=== PATIENT | female | born 2000 | race Caucasian/White ===

== ENCOUNTER 2018-10-31 15:35 | Emergency (ER) | payer MEDICAID ==
[~2018-10-31] VITALS: Ht 157.5 cm; Wt 70.0 kg
[2018-10-31 17:26] LABS: BASOPHILS % 0.5 % (0.0-2.0); EOSINOPHILS % 0.5 % (0.0-5.0); HEMATOCRIT. 37.4 % (36.0-48.0); LYMPHOCYTES % 14.3 % (20.0-50.0); MEAN CORPUSCULAR HEMOGLOBIN 30.1 pg (28.0-32.0); MEAN CORPUSCULAR VOLUME 86.4 fL (81.0-99.0); MEAN PLATELET VOLUME 8.2 fl (7.4-10.4); MONOCYTES % 4.7 % (2.0-8.0); PLATELET 269 x1000/uL (130-400); RED BLOOD CELL COUNT 4.33 mill/uL (4.2-5.4); RED CELL DISTRIBUTION WIDTH 12.8 % (11.6-14.6)
[2018-10-31 17:31] LABS: CHLORIDE 108 mEq/L (98-107)
[2018-10-31 17:35] LABS: ETHANOL BLOOD < 10 mg/dL
[2018-10-31 18:45] LABS: CLARITY URINE CLEAR (CLEAR); COLOR URINE YELLOW (YELLOW); KETONES URINE NEGATIVE (NEGATIVE); LEUKOCYTE ESTERASE URINE NEGATIVE (NEGATIVE); NITRITE URINE NEGATIVE (NEGATIVE); OCCULT BLOOD URINE NEGATIVE (NEGATIVE); PH URINE 6.5 (4.5-8.0); PROTEIN URINE NEGATIVE (NEGATIVE); SPECIFIC GRAVITY URINE 1.016 (1.005-1.030); UROBILINOGEN URINE 0.2 E.U./dL (0.2-1.0)
[2018-10-31 18:56] LABS: *AMPHETAMINES SCREEN URINE NEGATIVE (NEGATIVE); *BARBITURATES SCREEN URINE NEGATIVE (NEGATIVE)
[2018-10-31 18:57] LABS: *BENZODIAZEPINES SCREEN URINE NEGATIVE (NEGATIVE); *COCAINE SCREEN URINE NEGATIVE (NEGATIVE); CANNABINOID URINE SCREEN NEGATIVE (NEGATIVE); METHADONE URINE SCREEN NEGATIVE (NEGATIVE); OPIATES URINE SCREEN NEGATIVE (NEGATIVE); PHENCYCLIDINE URINE SCREEN NEGATIVE (NEGATIVE)
[2018-10-31] MEDS ORDERED: IBUPROFEN 600MG TABLET PO ONE (21:30)
[2018-11-01 11:20] VITALS: BP 101/53
== END 2018-11-01 11:54 | disposition home or self-care (01) ==
LOC: ER 15:35
DX: T43.212A Poisoning by selective serotonin and norepinephrine reuptake inhibitors, intentional self-harm, initial encounter (principal); S60.221A Contusion of right hand, initial encounter; F32.9 Major depressive disorder, single episode, unspecified; Z88.2 Allergy status to sulfonamides; Z90.49 Acquired absence of other specified parts of digestive tract; W22.01XA Walked into wall, initial encounter; Y93.89 Activity, other specified; Y92.018 Other place in single-family (private) house as the place of occurrence of the external cause
CPT/HCPCS: 36415; 73130; 80305; 80307; 80320; 80329; 81003; 81025; 99284; G0480

== ENCOUNTER 2018-12-08 23:15 | Emergency (ER) | payer OTHER ==
[~2018-12-08] VITALS: Ht 160 cm; Wt 64.0 kg
[2018-12-08 23:30] VITALS: BP 103/68
== END 2018-12-09 02:00 | disposition left against medical advice (07) ==
LOC: ER 23:15
DX: Z53.21 Procedure and treatment not carried out due to patient leaving prior to being seen by health care provider (principal)

== ENCOUNTER 2019-12-20 23:37 | Emergency (ER) | payer MEDICAID, OTHER ==
[~2019-12-20] VITALS: Ht 160 cm; Wt 75.0 kg
[2019-12-20 23:48] VITALS: BP 120/71
[2019-12-21] MEDS ORDERED: ACETAMINOPHEN 325MG TABLET PO STA (00:09)
[2019-12-21] MEDS ORDERED: ONDANSETRON HCL 4MG/2ML INJ IV ONE (00:15)
[2019-12-21] MEDS ORDERED: SODIUM CHLORIDE 0.9% 1,000 ML IV ONE (00:15)
[2019-12-21 00:28] LABS: BASOPHILS % 0.5 % (0.0-2.0); EOSINOPHILS % 0.1 % (0.0-5.0); HEMATOCRIT. 34.6 % (36.0-48.0); HEMOGLOBIN. 12.1 g/dL (12.0-16.0); MEAN CORPUSCULAR HEMOGLOBIN 30.9 pg (28.0-32.0); MEAN CORPUSCULAR VOLUME 88.4 fL (81.0-99.0); MEAN PLATELET VOLUME 8.7 fl (7.4-10.4); MONOCYTES % 4.5 % (2.0-8.0); NEUTROPHILS % 82.9 % (40.0-76.0); PLATELET 239 x1000/uL (130-400); RED BLOOD CELL COUNT 3.92 mill/uL (4.2-5.4); RED CELL DISTRIBUTION WIDTH 13.7 % (11.6-14.6)
[2019-12-21 00:32] LABS: CHLORIDE 109 mEq/L (98-107)
[2019-12-21 00:32] LABS: CLARITY URINE CLOUDY (CLEAR); COLOR URINE YELLOW (YELLOW); KETONES URINE 1+ (NEGATIVE); LEUKOCYTE ESTERASE URINE NEGATIVE (NEGATIVE); NITRITE URINE NEGATIVE (NEGATIVE); OCCULT BLOOD URINE NEGATIVE (NEGATIVE); PH URINE 5.5 (4.5-8.0); PROTEIN URINE TRACE (NEGATIVE); SPECIFIC GRAVITY URINE 1.025 (1.005-1.030); UROBILINOGEN URINE 0.2 E.U./dL (0.2-1.0)
[2019-12-21 00:58] LABS: B-HCG QUANTITATIVE 16947 mIU/mL (<3)
== END 2019-12-21 02:00 | disposition home or self-care (01) ==
LOC: ER 23:37
DX: O26.892 Other specified pregnancy related conditions, second trimester (principal); F32.9 Major depressive disorder, single episode, unspecified; Z3A.19 19 weeks gestation of pregnancy; Z88.2 Allergy status to sulfonamides
CPT/HCPCS: 36415; 76700; 76805; 80053; 81003; 81025; 83690; 84702; 85025; 96361; 96374; 99285; J2405; J7030

== ENCOUNTER 2020-03-27 23:20 | Observation (INO) | payer MEDICAID ==
[~2020-03-27] VITALS: Ht 160 cm; Wt 77.6 kg
[2020-03-28] MEDS ORDERED: PNV11TAB PO (00:02)
[2020-03-28 00:43] LABS: CLARITY URINE CLEAR (CLEAR); COLOR URINE YELLOW (YELLOW); KETONES URINE NEGATIVE (NEGATIVE); LEUKOCYTE ESTERASE URINE NEGATIVE (NEGATIVE); NITRITE URINE NEGATIVE (NEGATIVE); OCCULT BLOOD URINE NEGATIVE (NEGATIVE); PROTEIN URINE NEGATIVE (NEGATIVE); SPECIFIC GRAVITY URINE 1.007 (1.005-1.030); UROBILINOGEN URINE 0.2 E.U./dL (0.2-1.0)
== END 2020-03-28 03:03 | disposition home or self-care (01) ==
LOC: 8 EST LDRP 23:20
PROVIDERS: ADMIT Obstetrics & Gynecology; ATTEND Obstetrics & Gynecology
DX: O36.8130 Decreased fetal movements, third trimester, not applicable or unspecified (principal); Z3A.33 33 weeks gestation of pregnancy
CPT/HCPCS: 59025; 76815; 76818; 81003; G0378; 99281

== ENCOUNTER 2023-08-05 16:41 | Emergency (ER) | payer MEDICAID, OTHER ==
[~2023-08-05] VITALS: Ht 160 cm; Wt 75.0 kg
[~2023-08-05 16:41] MED LIST: PNV11TAB PO
[2023-08-05 16:45] VITALS: BP 103/74; PULSE 108; RESP 18; TEMP 98.2; O2SAT 99
== END 2023-08-05 19:37 | disposition left against medical advice (07) ==
LOC: ER 16:41
DX: M79.671 Pain in right foot (principal); Z53.21 Procedure and treatment not carried out due to patient leaving prior to being seen by health care provider